=== PATIENT | female | born 1990 | race Caucasian/White ===

== ENCOUNTER 2020-01-30 18:13 | Emergency (ER) | payer SELFPAY ==
[~2020-01-30] VITALS: Ht 172.7 cm; Wt 50.9 kg
[~2020-01-30 18:13] MED LIST: HYDROCODONE-APA1 TAB PO
[2020-01-30 18:21] VITALS: BP 121/75; Ht 172.7 cm; Wt 50.9 kg
[2020-01-30 20:03] LABS: BASOPHILS 0.6 % (0-2); EOSINOPHILS 3.6 % (0-7); HEMATOCRIT 39.4 % (36.0-48.0); HEMOGLOBIN 13.6 g/dL (12-16); IMMATURE GRANULOCYTES 0.4 % (0-5); LYMPHOCYTES 44.7 % (15-50); MCHC 34.5 g/dL (31.0-37.0); MCV 107.1 fL (80.0-100.0); MONOCYTES 5.9 % (2-11); NEUTROPHILS 44.8 % (40-80); RBC 3.68 10x6/uL (4.00-5.40)
[2020-01-30 20:07] LABS: PLATELET COUNT 241 10x3/uL (130-400)
[2020-01-30 20:11] LABS: CALC OSMOLALITY 280 mosm/kg (275-300); CALCIUM 8.9 mg/dL (8.5-10.1); CARBON DIOXIDE 24.2 mmol/L (21.0-32.0); CHLORIDE - SERUM 102 mmol/L (98-107); CREATININE - SERUM 0.7 mg/dL (0.6-1.3); GLUCOSE 96 mg/dL (74-106); POTASSIUM - SERUM 3.7 mmol/L (3.5-5.1); SODIUM 142 mmol/L (136-145); UREA NITROGEN 7 mg/dL (7-18); eGFR NON AFRICAN AMERICAN > 90 mL/min (90-120)
[2020-01-30 20:14] LABS: APTT 30.5 SECONDS (22.8-39.4); INR 1.04 (0.85-1.17); PROTIME 13.6 SECONDS (11.6-15.0)
[2020-01-30 20:15] LABS: D-DIMER-QUANTITATIVE 0.37 ug/mLFEU (0.20-0.54)
[2020-01-30 20:18] LABS: ALBUMIN 3.4 g/dL (3.4-5.0); ALKALINE PHOSPHATASE 150 U/L (30-120); ALT (SGPT) 102 U/L (10-68); BILIRUBIN - TOTAL 0.68 mg/dL (0.2-1.3); PROTEIN - SERUM 8.4 g/dL (6.4-8.2)
[2020-01-30 20:20] LABS: BILIRUBIN NEGATIVE (NEGATIVE); KETONE MODERATE mg/dL (NEGATIVE); NITRITE POSITIVE (NEGATIVE); UROBILINOGEN NORMAL mg/dL (< 2)
[2020-01-30 20:21] LABS: BACTERIA MANY HPF (NONE SEEN); UDS - AMPHET NEGATIVE QUAL (NEGATIVE); UDS - BARB NEGATIVE QUAL (NEGATIVE); UDS - BENZO NEGATIVE QUAL (NEGATIVE); UDS - COCAINE NEGATIVE QUAL (NEGATIVE); UDS - OPIATE NEGATIVE QUAL (NEGATIVE); UDS - PCP NEGATIVE QUAL (NEGATIVE); UDS - THC POSITIVE QUAL (NEGATIVE); WHITE CELLS - URINE 0-5 HPF (0-4)
[2020-01-30 20:21] LABS: C-REACTIVE PROTEIN < 0.2 mg/dL (0.0-0.9)
== END 2020-01-30 20:04 | disposition left against medical advice (07) ==
LOC: D.ER 18:13
PROVIDERS: Family Medicine
DX: M25.572 Pain in left ankle and joints of left foot (principal); G62.9 Polyneuropathy, unspecified; I10 Essential (primary) hypertension; Z72.0 Tobacco use; R20.0 Anesthesia of skin